=== PATIENT | male | born 1950 | race Caucasian/White ===

== ENCOUNTER 2021-06-18 08:36 | Inpatient (IN) | payer MEDICARE, MEDICAID ==
[~2021-06-18] VITALS: Ht 175.3 cm; Wt 64.0 kg
[2021-06-18] MEDS ORDERED: NITROGLYCERIN 0.4MG TABLET SL SL PRN (09:15)
[2021-06-18] MEDS ORDERED: ASPIRIN 81MG TABLET PO ONE (09:15)
[2021-06-18 09:37] LABS: BASOPHILS % 0.2 % (0.0-2.0); EOSINOPHILS % 0.1 % (0.0-5.0); HEMATOCRIT. 49.6 % (42.0-52.0); HEMOGLOBIN. 17.2 g/dL (14.0-18.0); LYMPHOCYTES % 12.8 % (20.0-50.0); MEAN CORPUSCULAR HEMOGLOBIN 32.8 pg (28.0-32.0); MEAN CORPUSCULAR VOLUME 94.7 fL (80.0-94.0); MEAN PLATELET VOLUME 7.8 fl (7.4-10.4); MONOCYTES % 10.1 % (2.0-8.0); NEUTROPHILS % 76.8 % (40.0-76.0); PLATELET 190 x1000/uL (130-400); RED BLOOD CELL COUNT 5.24 mill/uL (4.7-6.1); RED CELL DISTRIBUTION WIDTH 14.6 % (11.6-14.6)
[2021-06-18 09:44] LABS: CHLORIDE 103 mEq/L (98-107)
[2021-06-18] MEDS ORDERED: NA PHOS,M-B/NA PHOS,DI-BA ENEMA 118ML PR PRN (17:45)
[2021-06-18] MEDS ORDERED: GUAIFENESIN 200MG/10ML SUGAR FREE UDC PO PRN (17:45)
[2021-06-18] MEDS ORDERED: MAGNESIUM/ALUMINUM HYDROXIDE/SIMETHICONE 30ML UDC PO PRN (17:45)
[2021-06-18] MEDS ORDERED: ACETAMINOPHEN 650MG/20.3ML UDC GT PRN (17:45)
[2021-06-18] MEDS ORDERED: LORAZEPAM 0.5MG TABLET PO PRN (17:45)
[2021-06-18] MEDS ORDERED: HYDROCODONE/ACETAMINOPHEN 5/325MG TABLET PO PRN (17:45)
[2021-06-18] MEDS ORDERED: CLONIDINE 0.1MG TABLET PO PRN (17:45)
[2021-06-18] MEDS ORDERED: DOCUSATE SODIUM 100MG CAPSULE PO PRN (17:45)
[2021-06-18] MEDS ORDERED: MORPHINE SULFATE 2 MG/ML CPJ (NOT FOR IM USE) IV PRN (17:45)
[2021-06-18] MEDS ORDERED: ACETAMINOPHEN 650MG SUPP PR PRN (17:45)
[2021-06-18] MEDS ORDERED: DIPHENHYDRAMINE 50MG/ML VIAL IV PRN (17:45)
[2021-06-18] MEDS ORDERED: IPRATROPIUM/ALBUTEROL 0.5-3(2.5)MG/3ML NEB NEB PRN (17:45)
[2021-06-18] MEDS ORDERED: METOPROLOL TARTRATE 25MG TABLET PO NR (17:45)
[2021-06-18] MEDS ORDERED: ONDANSETRON HCL 4MG/2ML INJ IV PRN (17:45)
[2021-06-18] MEDS ORDERED: NALOXONE HCL 0.4MG/ML VIAL IV PRN (18:00)
[2021-06-18] MEDS ORDERED: MULTIVITAMINS,THER W-MINERALS TABLET PO SCH (18:15)
[2021-06-18] MEDS: DEXT 5%/0.45% NACL 1000ML 1,000 ML IV SCH (18:15)
[2021-06-18] MEDS ORDERED: FOLIC ACID 1MG TABLET PO SCH (18:15)
[2021-06-18] MEDS: METOPROLOL TARTRATE 25MG TABLET PO SCH (21:00)
[2021-06-18] MEDS: FAMOTIDINE 20MG TABLET PO SCH (21:00)
[2021-06-19 00:08] LABS: CREATINE KINASE 65 IU/L (39-308)
[2021-06-19 00:09] LABS: CREATINE KINASE MB FRACTION < 1.0 ng/mL (0.5-3.6)
[2021-06-19] MEDS: DEXT 5%/0.45% NACL 1000ML 1,000 ML IV SCH ×2 (04:15→14:04)
[2021-06-19] MEDS: ENOXAPARIN 40MG/0.4ML SYR SUBCUT SCH ×2 (08:56→17:13)
[2021-06-19] MEDS: CLOPIDOGREL 75MG TABLET PO SCH ×2 (08:57→09:00)
[2021-06-19] MEDS: THIAMINE HCL 100MG TABLET PO SCH ×4 (08:58→16:22)
[2021-06-19] MEDS ORDERED: ASPIRIN 81MG EC TABLET PO SCH (09:00)
[2021-06-19] MEDS: METOPROLOL TARTRATE 25MG TABLET PO SCH ×2 (09:00→20:55)
[2021-06-19 10:59] VITALS: BP 162/89
[2021-06-19 11:36] VITALS: BP 152/79
[2021-06-19 12:38] LABS: CHLORIDE 104 mEq/L (98-107)
[2021-06-19 12:39] LABS: BASOPHILS % 0.4 % (0.0-2.0); EOSINOPHILS % 0.7 % (0.0-5.0); HEMATOCRIT. 49.2 % (42.0-52.0); HEMOGLOBIN. 16.7 g/dL (14.0-18.0); LYMPHOCYTES % 21.7 % (20.0-50.0); MEAN CORPUSCULAR HEMOGLOBIN 32.7 pg (28.0-32.0); MEAN CORPUSCULAR VOLUME 96.2 fL (80.0-94.0); MEAN PLATELET VOLUME 7.9 fl (7.4-10.4); MONOCYTES % 11.7 % (2.0-8.0); NEUTROPHILS % 65.5 % (40.0-76.0); PLATELET 215 x1000/uL (130-400); RED BLOOD CELL COUNT 5.11 mill/uL (4.7-6.1); RED CELL DISTRIBUTION WIDTH 14.9 % (11.6-14.6)
[2021-06-19 12:47] LABS: CREATINE KINASE 78 IU/L (39-308)
[2021-06-19 12:50] LABS: CREATINE KINASE MB FRACTION 1.1 ng/mL (0.5-3.6)
[2021-06-19] MEDS ORDERED: SERTRALINE HCL 25MG TABLET PO SCH (14:15)
[2021-06-19] MEDS ORDERED: PROT40 MT (15:14)
[2021-06-19] MEDS ORDERED: METO25TA6 MT (15:14)
[2021-06-19] MEDS ORDERED: ASPI-1497 MT (15:14)
[2021-06-19] MEDS ORDERED: MULT-1146 MT (15:14)
[2021-06-19] MEDS ORDERED: SERT25TA MT (15:14)
[2021-06-19] MEDS ORDERED: CLOP-31 MT (15:14)
[2021-06-19] MEDS ORDERED: THIA100T88 MT (15:14)
[2021-06-19] MEDS ORDERED: FOLI-43 MT (15:14)
[2021-06-19 15:46] LABS: CLARITY URINE CLEAR (CLEAR); COLOR URINE YELLOW (YELLOW); KETONES URINE NEGATIVE (NEGATIVE); LEUKOCYTE ESTERASE URINE NEGATIVE (NEGATIVE); NITRITE URINE NEGATIVE (NEGATIVE); OCCULT BLOOD URINE NEGATIVE (NEGATIVE); PH URINE 5.5 (4.5-8.0); PROTEIN URINE NEGATIVE (NEGATIVE); SPECIFIC GRAVITY URINE 1.017 (1.005-1.030); UROBILINOGEN URINE 0.2 E.U./dL (0.2-1.0)
[2021-06-19 16:00] VITALS: BP 162/84
[2021-06-19 16:30] LABS: *AMPHETAMINES SCREEN URINE NEGATIVE (NEGATIVE); *BARBITURATES SCREEN URINE NEGATIVE (NEGATIVE)
[2021-06-19 16:31] LABS: *BENZODIAZEPINES SCREEN URINE NEGATIVE (NEGATIVE); *COCAINE SCREEN URINE NEGATIVE (NEGATIVE); CANNABINOID URINE SCREEN NEGATIVE (NEGATIVE); METHADONE URINE SCREEN NEGATIVE (NEGATIVE); OPIATES URINE SCREEN PRESUMTIVE POSITIVE (NEGATIVE); PHENCYCLIDINE URINE SCREEN NEGATIVE (NEGATIVE)
[2021-06-19] MEDS: FAMOTIDINE 20MG TABLET PO SCH (20:56)
[2021-06-19] MEDS: CHLORDIAZEPOXIDE 25MG CAPSULE PO SCH (22:00)
[2021-06-20 05:30] VITALS: BP 189/99
[2021-06-20] MEDS: CHLORDIAZEPOXIDE 25MG CAPSULE PO SCH (06:00)
[2021-06-20 06:25] VITALS: BP 138/86
[2021-06-20 06:30] LABS: BASOPHILS % 0.7 % (0.0-2.0); EOSINOPHILS % 1.3 % (0.0-5.0); HEMATOCRIT. 44.3 % (42.0-52.0); HEMOGLOBIN. 15.5 g/dL (14.0-18.0); LYMPHOCYTES % 20.7 % (20.0-50.0); MEAN CORPUSCULAR HEMOGLOBIN 33.3 pg (28.0-32.0); MEAN CORPUSCULAR VOLUME 95.3 fL (80.0-94.0); MEAN PLATELET VOLUME 8.9 fl (7.4-10.4); MONOCYTES % 13.3 % (2.0-8.0); PLATELET 188 x1000/uL (130-400); RED BLOOD CELL COUNT 4.65 mill/uL (4.7-6.1); RED CELL DISTRIBUTION WIDTH 14.2 % (11.6-14.6)
[2021-06-20 06:46] LABS: CHLORIDE 106 mEq/L (98-107)
== END 2021-06-20 07:50 | disposition home or self-care (01) | DRG 74 ==
LOC: ER 08:36 → 8WST 12:55 → SUPCPDRO 17:35 → ENRESERV 06-19 09:11
PROVIDERS: ADMIT Internal Medicine; ATTEND Internal Medicine
DX: G90.8 Other disorders of autonomic nervous system (principal); R45.851 Suicidal ideations; R26.89 Other abnormalities of gait and mobility; F25.9 Schizoaffective disorder, unspecified; I10 Essential (primary) hypertension; F10.10 Alcohol abuse, uncomplicated; E80.6 Other disorders of bilirubin metabolism; Z20.822 Contact with and (suspected) exposure to COVID-19; R73.9 Hyperglycemia, unspecified; M54.2 Cervicalgia; F32.A Depression, unspecified; Y90.9 Presence of alcohol in blood, level not specified; Z86.73 Personal history of transient ischemic attack (TIA), and cerebral infarction without residual deficits; Z79.02 Long term (current) use of antithrombotics/antiplatelets; Z79.899 Other long term (current) drug therapy
CPT/HCPCS: 36415; 70551; 71045; 73030; 80053; 80305; 80320; 81003; 82550; 82553; 83880; 84443; 84484; 85025; 85379; 87426; 93005; 93306; 93880; 93970; 99291; J1650; J2270; G0480

== ENCOUNTER 2022-04-25 13:24 | Emergency (ER) | payer MEDICAID, MEDICARE ==
[~2022-04-25] VITALS: Ht 170.2 cm; Wt 77.0 kg
[~2022-04-25 13:24] MED LIST: ASPI-1497 MT; CLOP-31 MT; FOLI-43 MT; METO25TA6 MT; MULT-1146 MT; PROT40 MT; SERT25TA MT; THIA100T88 MT
[2022-04-25 15:06] LABS: BASOPHILS % 0.2 % (0.0-2.0); CHLORIDE 97 mEq/L (98-107); EOSINOPHILS % 0.1 % (0.0-5.0); HEMOGLOBIN. 14.9 g/dL (14.0-18.0); LYMPHOCYTES % 9.8 % (20.0-50.0); MEAN CORPUSCULAR HEMOGLOBIN 32.6 pg (28.0-32.0); MEAN CORPUSCULAR VOLUME 94.4 fL (80.0-94.0); MEAN PLATELET VOLUME 8.4 fl (7.4-10.4); MONOCYTES % 10.9 % (2.0-8.0); PLATELET 183 x1000/uL (130-400); RED BLOOD CELL COUNT 4.56 mill/uL (4.7-6.1)
[2022-04-25] MEDS ORDERED: POTASSIUM CHLORIDE 20MEQ TABLET SR PO NR (15:15)
[2022-04-25] MEDS: LACTATED RINGERS 1,000 ML IV SCH ×5 (15:31→18:29)
[2022-04-25] MEDS ORDERED: KETOROLAC 15MG/ML VIAL IV ONE (18:30)
[2022-04-25 18:45] VITALS: BP 120/72
== END 2022-04-25 18:46 | disposition home or self-care (01) ==
LOC: ER 13:24
DX: R55 Syncope and collapse (principal); R51.9 Headache, unspecified; I10 Essential (primary) hypertension
CPT/HCPCS: 36415; 70450; 71045; 80053; 83880; 84484; 85025; 93005; 96374; 99284; J1885